=== PATIENT | male | born 1975 | race American Indian/Alaskan Native ===

== ENCOUNTER 2017-03-03 04:04 | Emergency (ER) | payer MEDICAID ==
[2017-03-03 04:04] VITALS: BMI 28.7
[2017-03-03 04:21] VITALS: O2SAT 98
[2017-03-03] MEDS ORDERED: Albuterol-Ipratrop 3 mg / 0.5 (3 ml) UD IH STA (04:24)
--- NOTE | 2017-03-03 04:33 | C.PDOC ---
History Of Present Illness 41 yo male w/PMhx of asthma ( no previous hx of intubation or ICU admission) come in for evaluation of nasal congestion, productive cough with greenish sputum gradually developed for past 4 days. Pt admits, "tonight developed some chest tightness with cough". Pt denies fever, chills, headache, dizziness, drooling,dysphagia, dyspnea, SOB, diaphoresis, palpitation, abd. pain, N/V/D, UTI sx. Ambulate to ED, (+) strong wheat odor. Time Seen by Provider: 03/03/17 04:23 Chief Complaint (Nursing): Chest Pain History Per: Patient Onset/Duration Of Symptoms: Gradual Current Symptoms Are (Timing): Worse Past Medical History Reviewed: Historical Data, Nursing Documentation, Vital Signs Vital Signs: Last Vital Signs Temp 98.0 F 03/03/17 04:18 Pulse 80 03/03/17 04:30 Resp 20 03/03/17 04:30 BP 129/79 03/03/17 04:18 Pulse Ox 98 03/03/17 05:19 - Medical History PMH: Anxiety, Asthma, Bipolar Disorder, Depression, Schizophrenia Denies: Diabetes, Hepatitis, HIV, HTN, Chronic Kidney Disease, Seizures, Sexually Transmitted Disease - [facility] Procedures APPLICATION OF SPLINT (04/15/13) DETOXIFICATION SERVICES FOR SUBSTANCE ABUSE TREATMENT (11/11/16) GROUP HIGH LEAD YARDER FOR SUBSTANCE ABUSE TREATMENT, PSYCHOEDUCATION (11/11/16) PSYCHIA INTERV/EVAL NEC (04/02/14) Family History: States: Unknown Family Hx - Social History Hx Tobacco Use: Yes Hx Alcohol Use: Yes Hx Substance Use: Yes - Immunization History Hx Tetanus Toxoid Vaccination: No Hx Influenza Vaccination: No Hx Pneumococcal Vaccination: No Review Of Systems Except As Marked, All Systems Reviewed And Found Negative. Constitutional: Negative for: Fever, Chills ENT: Positive for: Nose Discharge, Nose Congestion. Negative for: Throat Swelling Cardiovascular: Positive for: Chest Pain. Negative for: Edema, Light Headedness Respiratory: Positive for: Cough, Shortness of Breath, Sputum. Negative for: Pleuritic Pain, Wheezing Gastrointestinal: Negative for: Nausea, Vomiting, Abdominal Pain, Diarrhea Genitourinary: Negative for: Frequency Musculoskeletal: Negative for: Neck Pain, Back Pain Skin: Negative for: Rash Neurological: Negative for: Weakness, Numbness, Altered Mental Status, Headache , Dizziness Physical Exam - Physical Exam Appears: Well, Non-toxic, No Acute Distress Skin: Normal Color, Warm, Dry, No Rash Eye(s): bilateral: PERRL Nose: Discharge (B/L congestion with scant clear rhinorhea) Oral Mucosa: Moist, No Drooling Throat: Normal, No Erythema, No Exudate, No Drooling Neck: Trachea Midline, Supple Cardiovascular: Rhythm Regular Respiratory: No Decreased Breath Sounds, No Accessory Muscle Use, No Stridor, Wheezing (scattered Right base) Gastrointestinal/Abdominal: Normal Exam, Soft, No Tenderness Back: No CVA Tenderness Extremity: Normal ROM, No Pedal Edema, No Deformity Neurological/Psych: Oriented x3, Normal Speech ED Course And Treatment ECG: Interpreted By Me, Viewed By Me ECG Rhythm: Sinus Rhythm (SR@105/min, NAD, T wave inversion in V3-V6, no acute ST-T changes) ECG Interpretation: No Changes From Prior (11/10/2016) O2 Sat by Pulse Oximetry: 98 Pulse Ox Interpretation: Normal - Radiology CXR: Interpreted by Me, Viewed By Me CXR Interpretation: Yes: No Acute Disease Progress Note: On re-evaluation, pt is afebrile, hemodynamicaly stable. non- toxic. PulseOx 98% RA. Not in resp. distress. ENT: no acute findings. neck: (-) meningeal sihgn. Lungs: CTA B/L, BS equal B/L. ABd: benign. CXR review and appears normal. EKG review, no acute changes from previous study. Pt has clinical findings c/w asthmabronchitis, smoker. Pt advised. ref. to f/u with PMD In 2-3 days for re-eval. return to ED if nay worsening or new changes. Disposition Counseled Patient/Family Regarding: Studies Performed, Diagnosis, Need For Followup, Rx Given - Disposition Referrals: Danny Quintanilla MD [Staff Provider] - Disposition: HOME/ ROUTINE Disposition Time: 06:02 Condition: STABLE Additional Instructions: Encourage fluids Take medication as prescribed Follow up with PMD in 2 days for re-evaluation. Return to ED if any worsening or new changes. Prescriptions: Albuterol HFA [Ventolin HFA 90 mcg/actuation (8 g)] 1 puff IH Q6 #1 inhaler Benzonatate [Tessalon Perle] 100 mg PO TID #14 capsule Prednisone [Deltasone] 40 mg PO DAILY #6 tablet Instructions: Acute Bronchitis (ED), Asthma (ED) - Clinical Impression Clinical Impression: Bronchitis, Asthma
[2017-03-03] MEDS ORDERED: Albuterol-Ipratrop 3 mg / 0.5 (3 ml) UD ONE (04:51)
[2017-03-03 06:19] VITALS: BP 130/82; PULSE 82; RESP 16; TEMP 98.5
--- NOTE | 2017-03-03 09:17 | RAD ---
HISTORY: Cough COMPARISON: None available. TECHNIQUE: Chest PA and lateral FINDINGS: Examination limited by habitus. LUNGS: No focal consolidation. Scattered probable tiny calcified granulomas. Please note that chest x-ray has limited sensitivity for the detection of pulmonary masses. PLEURA: No significant pleural effusion identified. No definite pneumothorax . CARDIOVASCULAR: The cardiomediastinal silhouette appears within normal limits of size. OSSEOUS STRUCTURES: No acute osseous abnormality identified. VISUALIZED UPPER ABDOMEN: Unremarkable. OTHER FINDINGS: None. IMPRESSION: No focal consolidation, significant pleural effusion, or definite pneumothorax identified.
--- NOTE | 2017-03-05 14:06 | CARD ---
APPROVED REPORT EKG Measurement Heart [id number] <Conclusion> Sinus tachycardia Incomplete right bundle branch block Nonspecific T wave abnormality Abnormal ECG
== END 2017-03-03 06:33 | disposition home or self-care (01) ==
LOC: C.ER 04:04
DX: J45.909 Unspecified asthma, uncomplicated (principal)

== ENCOUNTER 2018-05-04 03:56 | Inpatient (IN) | payer MEDICAID ==
[2018-05-04 04:13] VITALS: BMI 28.0
[2018-05-04] MEDS ORDERED: DiphenhydrAMINE 12.5 mg/5 ml LIQ UD (5 ml) PO STA (04:19)
--- NOTE | 2018-05-04 04:20 | C.PDOC ---
History Of Present Illness <Myah Martinez - Last Filed: 05/04/18 04:27> <Isabella Taylor - Last Filed: 05/04/18 11:30> 42 year old male with PMHx of schizophrenia and bipolar presents to the ED for evaluation of thoughts of killing himself. Patient states his plan is to slit his wrists. Patient reports he has been of his medications seroquel, haldol, and benadryl for the past 2 weeks. Patient admits to alcohol consumption today. Patient denies drug use, hallucinations, HI. (Myah Martinez) History Per: Patient History/Exam Limitations: clinical condition Onset/Duration Of Symptoms: Days Current Symptoms Are (Timing): Still Present Suicide/Self Injury Attempted (Context): Cut Wrists Modifying Factor(s): Alcohol Associated Symptoms: Anxiety, Depression, Suicidal Thoughts, Suicidal Plan Recent travel outside of the [place]: No Additional History Per: Patient <Myah Martinez - Last Filed: 05/04/18 04:27> <Isabella Taylor - Last Filed: 05/04/18 11:30> Time Seen by Provider: 05/04/18 04:09 Chief Complaint (Nursing): Psychiatric Evaluation Past Medical History Reviewed: Historical Data, Nursing Documentation, Vital Signs - Medical History PMH: Anxiety, Asthma, Bipolar Disorder, Depression, Schizophrenia Denies: Diabetes, Hepatitis, HIV, HTN, Chronic Kidney Disease, Seizures, Sexually Transmitted Disease Surgical History: No Surg Hx Family History: States: Unknown Family Hx - Social History Hx Tobacco Use: Yes Hx Alcohol Use: Yes Hx Substance Use: Yes - Immunization History Hx Tetanus Toxoid Vaccination: No Hx Influenza Vaccination: No Hx Pneumococcal Vaccination: No <Myah Martinez - Last Filed: 05/04/18 04:27> Vital Signs: Last Vital Signs Temp 98.1 F 05/04/18 07:21 Pulse 103 H 05/04/18 07:21 Resp 20 05/04/18 07:21 BP 124/70 05/04/18 07:21 Pulse Ox 96 05/04/18 07:21 - [facility] Procedures APPLICATION OF SPLINT (04/15/13) DETOXIFICATION SERVICES FOR SUBSTANCE ABUSE TREATMENT (11/11/16) GROUP MANAGER MEDIA RELATIONS FOR SUBSTANCE ABUSE TREATMENT, PSYCHOEDUCATION (11/11/16) PSYCHIA INTERV/EVAL NEC (04/02/14) Review Of Systems Constitutional: Negative for: Fever, Chills Cardiovascular: Negative for: Chest Pain, Palpitations Respiratory: Negative for: Cough, Shortness of Breath Gastrointestinal: Negative for: Nausea, Vomiting Skin: Negative for: Rash Neurological: Negative for: Weakness, Numbness Psych: Positive for: Depression, Suicidal ideation <Myah Martinez - Last Filed: 05/04/18 04:27> Physical Exam - Physical Exam Appears: Non-toxic, No Acute Distress, Other (anxious) Skin: Normal Color, Warm, Dry Head: Atraumatic, Normacephalic Eye(s): bilateral: Normal Inspection Oral Mucosa: Moist Neck: Normal ROM, Supple Chest: Symmetrical Cardiovascular: Rhythm Regular Respiratory: Normal Breath Sounds, No Rales, No Rhonchi, No Wheezing Gastrointestinal/Abdominal: Soft, No Tenderness, No Guarding, No Rebound Extremity: Normal ROM, No Tenderness, No Swelling Neurological/Psych: Oriented x3, Normal Speech, Other (non focal) Gait: Steady <Myah Martinez - Last Filed: 05/04/18 04:27> ED Course And Treatment O2 Sat by Pulse Oximetry: 96 (ON RA) Pulse Ox Interpretation: Normal <Myah Martinez - Last Filed: 05/04/18 04:27> - Laboratory Results Result Diagrams: 05/04/18 04:53 05/04/18 04:53 <Isabella Taylor - Last Filed: 05/04/18 11:30> Medical Decision Making <Myah Martinez - Last Filed: 05/04/18 04:27> <Isabella Taylor - Last Filed: 05/04/18 11:30> Medical Decision Making: Impression: bipolar, schizophrenia Plan: * Labs * Benadryl 50 mg PO * Haldol 5 mg IM * Seroquel 25 mg pO * UA (Myah Martinez) Disposition <Myah Martinez - Last Filed: 05/04/18 04:27> - Disposition Disposition Time: 11:20 <Isabella Taylor - Last Filed: 05/04/18 11:30> - Disposition Disposition: HOSPITALIZED Condition: STABLE Forms: [facility] (T[place]ik) - Clinical Impression Clinical Impression: Schizoaffective disorder, bipolar type - Scribe Statement The provider has reviewed the documentation as recorded by the Scribe <Myah Martinez - Last Filed: 05/04/18 04:27> <Isabella Taylor - Last Filed: 05/04/18 11:30> - Scribe Statement Joe Richardson All medical record entries made by the Scribe were at my direction and personally dictated by me. I have reviewed the chart and agree that the record accurately reflects my personal performance of the history, physical exam, medical decision making, and the department course for this patient. I have also personally directed, reviewed, and agree with the discharge instructions and disposition. (Myah Martinez) Addendum <Myah Martinez - Last Filed: 05/04/18 04:27> <Isabella Taylor - Last Filed: 05/04/18 11:30> Addendum: 05/04/18 08:57 Patient sleeping comfortably, in no distress, arousable to verbal stimuli. Patient has mild elevation in Bun/Cr, review of prior records confirms this is chronic. Will given 1 liter IV NS bolus to hydrate patient. Patient medically cleared. 05/04/18 11:[address] Alonso for psychiatric admission - schizoaffective disorder, bipolar type. (Isabella Taylor) Decision To Admit <Myah Martinez - Last Filed: 05/04/18 04:27> - Pt Status Changed To: Hospital Disposition Of: Inpatient - Admit Certification Admit to Inpatient:: After my assessment, the patient will require hospitalization for at least two midnights. This is because of the severity of symptoms shown, intensity of services needed, and/or the medical risk in this patient being treated as an outpatient. - InPatient: Physician Admission Certification: I certify that this patient requires 2 or more midnights of care for the following reason:: see notes - . Bed Request Type: Psychiatry Admitting Physician: Adina Alonso <Isabella Taylor - Last Filed: 05/04/18 11:30> - . Patient Diagnosis: Schizoaffective disorder, bipolar type
[2018-05-04 04:56] LABS: BASO # 0.1 K/uL (0.0-0.2); EOS # 0.1 K/uL (0.0-0.7); HEMOGLOBIN 15.5 g/dL (12.0-18.0); LYMPH # 1.6 K/uL (1.0-4.3); MONO # 0.7 K/uL (0.0-0.8); NEUT # 6.6 K/uL (1.8-7.0); NRBC % 0.2 % (0.0-2.0); WHITE BLOOD COUNT 9.2 K/uL (4.8-10.8)
[2018-05-04 05:00] LABS: BASO % 1.4 % (0.0-2.0); EOS % 1.2 % (0.0-4.0); LYMPH % 17.3 % (20.0-40.0); MEAN CELL VOLUME 85.2 fL (80.0-94.0); MEAN CORPUSCULAR HGB CONC 34.1 g/dL (33.0-37.0); MONO % 7.9 % (0.0-10.0); NEUT % 72.2 % (50.0-75.0); RBC 5.34 Mil/uL (4.40-5.90); RED CELL DISTRIBUTION WIDTH 15.9 % (11.5-14.5)
[2018-05-04 05:01] LABS: GRANULAR CAST 216 /lpf (0-1); SQUAMOUS EPITHIAL 1 /hpf (0-5); URINE BILIRUBIN NEGATIVE (NEGATIVE); URINE BLOOD 1+ (NEGATIVE); URINE CLARITY Hazy (Clear); URINE COLOR Yellow (YELLOW); URINE GLUCOSE (UA) NORMAL (Normal); URINE LEUKOCYTE ESTERASE NEG Leu/uL (Negative); URINE PROTEIN 1+ mg/dL (NEGATIVE)
[2018-05-04 05:09] LABS: ALB/GLOB RATIO 1.2 (1.0-2.1); ALBUMIN 4.7 g/dL (3.5-5.0); CALCIUM 8.7 mg/dl (8.6-10.4)
[2018-05-04 05:12] LABS: BARBITURATES, UR NEGATIVE (NEGATIVE); OPIATES, UR NEGATIVE (NEGATIVE); PHENCYCLIDINE, UR NEGATIVE (NEGATIVE)
[2018-05-04 05:19] LABS: BENZODIAZEPINES, UR POSITIVE (NEGATIVE)
[2018-05-04 07:22] VITALS: O2SAT 96
[2018-05-04] MEDS ORDERED: Sodium Chloride 0.9% 1,000 ML IV ONE (08:48)
[2018-05-04] MEDS ORDERED: Sodium Chloride 0.9% 1,000 ML ONE (09:13)
--- NOTE | 2018-05-04 12:45 | PCM.BM ---
<Gwen Lacey - Last Filed: 05/04/18 12:44> Treatment assets and liabiliti Patient Assests: cooperative, ADL independent, good past tx response, cognitively intact Patient Liabilities: substance abuse - Milieu Protocol Maintain good personal hygiene: daily Encourage regular showers Conduct patient checks and document Observation sheet: Q15 minutes Maintain personal safety: every shift Educate patient to report safety concerns to staff, every shift Monitor environment for contraband/sharps Medication safety: Monitor for expected outcome, potential side effects: every shift, Assess barriers to learning: every shift, Assess readiness for medication education: every shift <Kalina Barber - Last Filed: 05/05/18 13:38> Family Contact Family involvement: Family/SO is involved Family contact: Patient declines to allow family contact at present - Goals for Treatment Patient goals for treatment: "I want to go home." Discharge/Continuing Care - Education Needs Education Needs: Patient Medication, Patient Coping Skills - Discharge Discharge Criteria: Tolerates medication w/o severe side effects, Reduction of target symptoms Discharge to:: Home - Treatment Team Participation Discussed with Family/SO: No Was Patient/Family/SO present at Treatment Team Meeting: Yes <Abigail Chatman - Last Filed: 05/05/18 14:23> - Diagnosis (1) Schizoaffective disorder, bipolar type Status: Acute Interventions: 05/05/18 14:23 * Assess/adjust medications daily and /or as needed * See patient on an individual basis 7x/week to assess symptoms of depression * Monitor for side effects & effectiveness of medications * (2) Alcohol abuse Status: Acute Interventions: 05/05/18 14:23 * Assess 7x/week regarding severity of withdrawal * Educate regarding risks, benefits, side effects and alternatives of medications * Use Motivational Interviewing for abstinence * Use CBT for relapse prevention * Medication management for withdrawal symptoms * Encourage medication assisted treatment *
[2018-05-04] MEDS: Multiple Vitamins Tab PO SCH (13:03)
[2018-05-04] MEDS ORDERED: Albuterol HFA 90 mcg/actuation (8 g) INH PRN (22:48)
[2018-05-05 06:32] VITALS: TEMP 98.1
[2018-05-05] MEDS: Multiple Vitamins Tab PO SCH (09:52)
--- NOTE | 2018-05-05 13:14 | PCM.PSYCH ---
Initial Psychiatric Evaluation - Initial Psychiatric Evaluation Type of Admission: Voluntary Legal Status: Capacity Chief Complaint (in patient's own words): "I feel better" History of Present Illness and Precipitating Events: The pt is seen, chart reviewed and case discussed He is an almost 43 y/o AAM, single, has a girlfriend and one adult child. Works as a temp worker. He first said his GF "kicked him out" b/c of his drinking but then he claimed that he spoke to her and that she will take him back now and he even asked for d /c but then agreed to stay. He came here intoxicated, hearing/seeing things and feeling depressed and suicidal. He got sobered up and improved. Still "somewhat" depressed but no longer suicidal. No AVH/del today. He was cooperative and pleasant. He minimizes his alcohol use ("2 beers") (his BAL was much higher than 2 beers) and denies drugs use Past psych hx: Three admissions in , [facility], [place] similar presentations. One cornelius attempt in 2012 Family psych hx: Denied Medical hx: Asthma Current Medications: Active Medications Generic Name Dose Route Start Last Admin Trade Name Freq PRN Reason Stop Dose Admin Albuterol 1 puff 05/04/18 22:48 Ventolin Hfa 90 Mcg/Actuation (8 G) INH RQ6 PRN Shortness of Breath Benztropine Mesylate 1 mg 05/04/18 12:30 05/05/18 09:53 Cogentin PO 1 mg DAILY EFRAIN Administration Chlordiazepoxide 25 mg 05/04/18 12:30 05/05/18 12:00 Librium PO 05/09/18 12:17 25 mg TID EFRAIN Administration Taper Clonidine HCl 0.1 mg 05/04/18 12:18 Catapres PO Q4H PRN Symptoms of alcohol withdrawl Folic Acid 1 mg 05/04/18 12:30 05/05/18 09:53 Folic Acid PO 1 mg DAILY EFRAIN Administration Haloperidol 5 mg 05/04/18 12:30 05/05/18 09:52 Haldol PO 5 mg BID EFRAIN Administration Hydroxyzine HCl 25 mg 05/04/18 15:31 Atarax PO Q6H PRN Anxiety Ibuprofen 600 mg 05/04/18 15:31 05/05/18 12:15 Motrin Tab PO 600 mg TID PRN Administration Pain, moderate (4-7) Multivitamins 1 tab 05/04/18 12:30 05/05/18 09:52 Hexavitamin PO 1 tab DAILY EFRAIN Administration Pneumococcal Polyvalent Vaccine 0.5 ml 05/07/18 10:00 Pneumovax 23 Vaccine IM 05/07/18 10:01 .ONCE ONE Sertraline HCl 25 mg 05/05/18 10:00 05/05/18 09:54 Zoloft PO 25 mg DAILY EFRAIN Administration Thiamine HCl 100 mg 05/04/18 12:30 05/05/18 09:53 Vitamin B1 Tab PO 100 mg DAILY EFRAIN Administration Trazodone HCl 50 mg 05/04/18 12:18 05/04/18 21:15 Desyrel PO 50 mg HS PRN Administration Insomnia Past Psychiatric History - Past Psychiatric History Previous Treatment History: Inpatient Pertinent Medical Hx (Current Medical&Sleep Prob, Allergies): Allergies Allergy/AdvReac Type Severity Reaction Status Date / Time No Known Allergies Allergy Verified 05/04/18 04:12 Unobtainable 01/12/18 Review of Systems - Psychiatric Psychiatric: Abnormal Sleep Pattern, Anxiety, Depression, Difficulty Concentrating. absent: Hallucinations, Homicidal Ideation, Paranoia, Suicidal Ideation Mental Status Examination - Personal Presentation Personal Presentation: Looks stated age - Affect Affect: Constricted - Motor Activity Motor Activity: Calm - Reliability in Providing Information Reliability in Providing Information: Fair - Speech Speech: Organized - Mood Mood: Anxious - Formal Thought Process Formal Thought Process: No Impairment - Cognitive Functions Orientation: Person, Place, Situation, Time Sensorium: Alert Attention/Concentration: Attentive Estimate of Intelligence: Average Judgement: Intact, as evidence by: Insight regarding need for hospitalization Memory: Recent intact, as evidence by: Ability to recall events of the day, Remote intact, as evidenced by: Abilit to recall sig. life events - Risk Risk: Withdrawal, Diminished functioning - Strength & Assets Inventory Strength & Assets Inventory: Cooperative - Limitations Limitations: Other DSM 5 DX - DSM 5 DSM 5 Diagnosis: Major Depressive d/o -recurrent, moderate r/o schizoaffective d/o - depressed Alcohol use d/o - moderate 9r/o severe) r/oi Personality d/o r/o Alcohol-induced mood disorder - Recommended/Plan of Treatment Treatment Recommendations and Plan of Treatment: Zoloft for depression He continues his previous medication haldol, but that needs to be discussed. As need medications All risks, benefits and alternatives of the meds discussed, and the pt agreed and understood. Attend groups and activities Individual therapy daily Psychoeducation and support daily Encourage compliance with meds and after care Refer to outpatient program Teach healthy lifestyle methods, i.e. diet, exercise, meditation Smoking cessation and patch if needed 32 min Projected ELOS: 3-4 days Prognosis: Good w treatment - Smoking Cessation Smoking Cessation Initiated: Yes
[2018-05-06 06:42] VITALS: BP 120/73; PULSE 74; RESP 20
[2018-05-06] MEDS: Multiple Vitamins Tab PO SCH (09:44)
--- NOTE | 2018-05-06 15:24 | PCM.PYCHDC ---
Mental Status Examination - Mental Status Examination Orientation: Person, Place, Situation, Time Memory: Intact Mood: Neutral Affect: Other (Appropriate) Speech: Appropriate Attention: WNL Concentration: WNL Association: WNL Fund of Knowledge: WNL Formal Thought Process: No Impairment Description of patient's judgement and insight: Fair Psychotic Thoughts and Behaviors: None Suicidal Ideation: No Current Homicidal Ideation?: No Discharge Summary - Discharge Note Reason for Hospitalization: Major depressive disorder Alcohol use disorder Laboratory Data: Reviewed Consultations:: List each consultation separately and include: 1. Reason for request. 2. Findings. 3. Follow-up Summary of Hospital Course include:: 1. Description of specific treatment plan utilized for patients during their course of treatmen. 2. Summarize the time- course for resolution of acute symptoms and/or regressed behaviors. 3. Describe issues identified and worked on during hospitalization. 4. Describe medication utilized. 5. Describe medical problems identified and treated. 6. Reassessment of suicide risk Summary of Hospital Course: The pt is seen, chart reviewed and case discussed He is an almost 43 y/o AAM, single, has a girlfriend and one adult child. Works as a temp worker. He first said his GF "kicked him out" b/c of his drinking but then he claimed that he spoke to her and that she will take him back now and he even asked for d /c but then agreed to stay. He came here intoxicated, hearing/seeing things and feeling depressed and suicidal. He got sobered up and improved. Still "somewhat" depressed but no longer suicidal. No AVH/del today. He was cooperative and pleasant. He minimizes his alcohol use ("2 beers") (his BAL was much higher than 2 beers) and denies drugs use Past psych hx: Three admissions in [facility] similar presentations. One cornelius attempt in 2013 During his stay in the hospital patient was treated with Librium, sertraline, Seroquel and other when necessary medications. Today patient was quite stable and requested for discharge from the hospital. Patient denied any withdrawal symptoms. At the time of evaluation had and discharge, patient was awake alert oriented 3 , had no delusions, no auditory or visual hallucinations, no suicidal ideations or homicidal ideations. Patient was stable at the time of discharge. Patient reported that he was following up with [facility] and will go back to them. - Final Diagnosis (DSM 5) Condition upon Discharge: STABLE Disposition: HOME/ ROUTINE Prescriptions/Medication Reconciliation: Benztropine [Cogentin] 1 mg PO DAILY #30 tab Haloperidol [Haldol] 5 mg PO BID #60 tab QUEtiapine [Seroquel] 100 mg PO HS #30 tab Sertraline [Zoloft] 100 mg PO DAILY #30 tab - Smoking Cessation Smoking Cessation Medication prescribed: No - Antipsychotic Medications Pt discharged on 2 or more routine antipsychotic medications: No
[2018-05-07] MEDS ORDERED: Pneumococcal 23-Valent Vaccine IM ONE (10:00)
== END 2018-05-06 10:58 | disposition home or self-care (01) | DRG 885 ==
LOC: C.ER 03:56 → C.9E 11:20 → C.5E 11:51
PROVIDERS: ADMIT Psychiatry & Neurology Psychiatry; ATTEND Psychiatry & Neurology Psychiatry
PROC: GZHZZZZ Group Psychotherapy (ICD-10-PCS; principal; 2018-05-04)
DX: F25.0 Schizoaffective disorder, bipolar type (principal); Z87.891 Personal history of nicotine dependence; F19.10 Other psychoactive substance abuse, uncomplicated; J45.909 Unspecified asthma, uncomplicated; F10.120 Alcohol abuse with intoxication, uncomplicated; Y90.6 Blood alcohol level of 120-199 mg/100 ml

== ENCOUNTER 2019-04-01 14:37 | Emergency (ER) | payer MEDICAID ==
[2019-04-01 14:37] VITALS: BMI 28.0
[2019-04-01 14:49] VITALS: BP 156/91; PULSE 69; RESP 20; TEMP 98.7; O2SAT 97
--- NOTE | 2019-04-01 15:50 | C.PDOC ---
History Of Present Illness Patient is a 43 year old male, with a PMHx of bipolar disorder and schizophrenia, who presents to the ED requesting medication refills of Seroquel and Benadryl. Patient initially stated that he is from [place] and ran out of his medications and did not call his doctor for a refill because his appointment is 3 weeks away. Patient then changed his story and said he was at a [employer] and his medications must have fallen out. He was seen at [facility] before and stated he was unable to go there because the wait times were too long. Patient denies any SI/HI, visual hallucinations, or other physical complaints. Time Seen by Provider: 04/01/19 15:10 Chief Complaint (Nursing): Med Refill History Per: Patient History/Exam Limitations: no limitations Recent travel outside of the [place]: No Additional History Per: Patient Past Medical History Reviewed: Historical Data, Nursing Documentation, Vital Signs Vital Signs: Last Vital Signs Temp 98.7 F 04/01/19 14:46 Pulse 69 04/01/19 14:46 Resp 20 04/01/19 14:46 BP 156/91 H 04/01/19 14:46 Pulse Ox 97 04/01/19 14:46 Primary Care Provider: Non [facility] Provider, - Medical History PMH: Anxiety, Asthma, Bipolar Disorder, Depression, Schizophrenia Denies: Diabetes, Hepatitis, HIV, HTN, Chronic Kidney Disease, Seizures, Sexually Transmitted Disease Surgical History: No Surg Hx - [facility] Procedures APPLICATION OF SPLINT (04/15/13) DETOXIFICATION SERVICES FOR SUBSTANCE ABUSE TREATMENT (11/11/16) GROUP SUSTAINABLE AGRICULTURE SPECIALIST FOR SUBSTANCE ABUSE TREATMENT, PSYCHOEDUCATION (11/11/16) GROUP PSYCHOTHERAPY (05/04/18) PSYCHIA INTERV/EVAL NEC (04/02/14) Family History: States: Unknown Family Hx - Social History Hx Tobacco Use: Yes Hx Alcohol Use: Yes (2-3 24 ounes beers daily) Hx Substance Use: Yes - Immunization History Hx Tetanus Toxoid Vaccination: No Hx Influenza Vaccination: No Hx Pneumococcal Vaccination: No Review Of Systems Except As Marked, All Systems Reviewed And Found Negative. Cardiovascular: Negative for: Chest Pain Respiratory: Negative for: Shortness of Breath Gastrointestinal: Negative for: Nausea, Vomiting, Diarrhea Psych: Negative for: Suicidal ideation, Other (HI or hallucinations ) Physical Exam - Physical Exam Appears: Well, Non-toxic, No Acute Distress Skin: Warm, Dry Head: Atraumatic, Normacephalic Eye(s): bilateral: PERRL, EOMI Oral Mucosa: Moist Neck: Normal ROM, Supple Chest: Symmetrical Cardiovascular: Rhythm Regular, No Murmur Respiratory: No Rales, No Rhonchi, No Wheezing Gastrointestinal/Abdominal: Soft, No Tenderness Extremity: Bilateral: Atraumatic, Normal Color And Temperature Pulses: Left Dorsalis Pedis: Normal, Right Dorsalis Pedis: Normal Neurological/Psych: Other (alert and awake ) ED Course And Treatment O2 Sat by Pulse Oximetry: 97 (on RA) Pulse Ox Interpretation: Normal Medical Decision Making Medical Decision Making: Crisis spoke to patient. Patient informed by me to go back to [facility] because it would be the fastest way to get a refill of his medications. Disposition Counseled Patient/Family Regarding: Diagnosis, Need For Followup - Disposition Disposition: HOME/ ROUTINE Disposition Time: 16:07 Condition: STABLE Additional Instructions: SUZI MAURER, thank you for letting us take care of you today. Your provider was Feli Richey MD and you were treated for MED REFILL. The emergency medical care you received today was directed at your acute symptoms. Return to the Emergency Department if your symptoms worsen, do not improve, or if you have any other problems. Please go to [facility] to make an appointment. Bring any paperwork you were given at discharge with you along with any medications you are taking to your follow up visit. Our treatment cannot replace ongoing medical care by a primary care provider outside of the emergency department. Thank you for allowing the [facility] team to be part of your care today. Instructions: Schizoaffective Disorder (DC) Forms: [employer] (Beninese) - Clinical Impression Clinical Impression: Schizoaffective disorder, bipolar type, Non compliance w medication regimen - Scribe Statement The provider has reviewed the documentation as recorded by the [employer] All medical record entries made by the Scribe were at my direction and personally dictated by me. I have reviewed the chart and agree that the record accurately reflects my personal performance of the history, physical exam, medical decision making, and the department course for this patient. I have also personally directed, reviewed, and agree with the discharge instructions and disposition.
== END 2019-04-01 16:16 | disposition home or self-care (01) ==
LOC: C.ER 14:37
DX: F25.0 Schizoaffective disorder, bipolar type (principal); Z91.14 Patient's other noncompliance with medication regimen